=== PATIENT | female | born 1950 | race Caucasian/White ===

== ENCOUNTER 2020-10-18 08:14 | Day surgery (SDC) | payer MEDICARE ==
[2020-10-18] MEDS ORDERED: fentaNYL 100 MCG/2 ML SDV ONE (08:37)
[2020-10-18] MEDS ORDERED: Midazolam 1 MG/ML 2 ML SDV ONE (08:37)
[2020-10-18] MEDS ORDERED: Propofol 200 MG/20 ML SDV ONE (08:37)
[2020-10-18] MEDS ORDERED: Sodium Chloride 0.9% 1,000 ML IV SCH (09:00)
--- NOTE | 2020-10-18 19:58 | OR ---
DATE OF PROCEDURE: 10/18/2020 SURGEON: Vincent Roach MD PROCEDURE: Esophagogastroduodenoscopy. FINDINGS: 1. Mild inflammation at GE junction. 2. No gross abnormalities. COMPLICATIONS: None. NIGHT CLERK AUDITOR: None. ANESTHESIA: MAC. PREOPERATIVE DIAGNOSIS: Epigastric pain. POSTOPERATIVE DIAGNOSIS: Epigastric pain. RISKS: Risks, benefits, alternatives, and limitations including, but not limited to infection, bleeding, perforation, false positives and false negatives were explained to the patient who wished to proceed. PROCEDURE IN DETAIL: The patient was placed in left lateral decubitus position. The EGD scope was introduced and advanced atraumatically to the second part of the duodenum. No evidence of duodenitis or ulceration. No old or new blood. Within the stomach itself, there was no evidence of gastritis. No ulceration. On retroflexion, no hiatal hernia was noted. In the GE junction, the patient had a very small tongue of reflux disease, less than 1 cm. This was biopsied multiple times using cold biopsy forceps in conjunction with all 4 quadrants. The remainder of the esophagus was inspected without abnormality. Air was removed from the stomach. The patient tolerated the procedure well. Vincent Roach MD /[id number]
== END 2020-10-18 11:27 | disposition home or self-care (01) ==
LOC: JP.SDS 08:14
PROVIDERS: ATTEND Surgery
DX: K21.9 Gastro-esophageal reflux disease without esophagitis (principal); J45.909 Unspecified asthma, uncomplicated; F17.200 Nicotine dependence, unspecified, uncomplicated; E78.5 Hyperlipidemia, unspecified
CPT/HCPCS: 43239; J2250; J2704; J3010; J7030